=== PATIENT | male | born 1960 | race Caucasian/White ===

== ENCOUNTER 2017-07-15 15:41 | Inpatient (IN) | payer OTHER ==
[~2017-07-15] VITALS: Ht 157.5 cm; Wt 35.0 kg
[2017-07-15] VITALS (9 sets, daily range): BP systolic 106–124; BP diastolic 71–94; BMI 16.8
--- NOTE | ~2017-07-15 | PN ---
PATIENT:NAZIA LANIER MEDICAL RECORD: [id number] LOCATION:.[facility] D.231 ADMISSION DATE: 07/15/17 PROGRESS NOTE DATE OF SERVICE: 07/21/2017 PROGRESS NOTE ADDENDUM CHIEF COMPLAINT: None. The patient continues on BiPAP. There is some stool in the stoma bag. The abdomen is nontender. I think his ileus is slowly resolving. The patient is nonverbal and is unable to provide me with any aggravating or alleviating factors. He is unable to provide me with any review of systems. This is a progress note addendum. For the typed portion of the progress note, please see the chart. This would include past medical and surgical history, current medications, allergies, and social history as well as family history. PHYSICAL EXAMINATION: GENERAL: The patient appears acutely ill. Also appears chronically ill. VITAL SIGNS: Reviewed. EARS: External ears appear normal. EYES: Extraocular movements are intact. NECK: Trachea is midline. CHEST: Intercostal retractions are present. Moderately labored. ABDOMEN: Nontender. EXTREMITIES: Flexion extremity contractures. BACK: Thoracic kyphosis is noted. PSYCHIATRIC: Anxious affect. IMPRESSION: Slowly resolving ileus. PLAN: Continue current supportive care. TRANSINT:[id number] Voice Confirmation ID: [id number] DOCUMENT ID: [id number] ERAN GIBBS MD at 1327 CC: [id number] DICTATION DATE: 07/21/17 170 DIGITAL IMAGING SPECIALIST: 07/21/172 DIS IN 07/23/17 [place] [id number] [place] [id number]
--- NOTE | ~2017-07-15 | PN ---
PATIENT:NAZIA LANIER MEDICAL RECORD: [id number] LOCATION:[facility] ADMISSION DATE: 07/15/17 PROGRESS NOTE DATE OF SERVICE: 07/20/2017 ADDENDUM CHIEF COMPLAINT: None. The patient has a persistent ileus. His abdomen is nontender. He has not had a return of bowel function yet. Nothing aggravates. Nothing alleviates. The patient is unable to provide me with any review of systems. For the typed portion of the progress note, please see the chart. This would include current medications, past medical and surgical history, allergies, social history as well as family history. REVIEW OF SYSTEMS: As described above. The patient is unable to provide me with any review of systems due to his neurologic condition. He is currently on BiPAP. PHYSICAL EXAMINATION: GENERAL: The patient appears acutely ill. Also appears chronically ill. VITAL SIGNS: Reviewed. EARS: External ears appear normal. EYES: Extraocular movements are intact. NECK: Trachea is midline. CHEST: There are intercostal retractions. PULMONARY: Moderately labored. ABDOMEN: Nontender. EXTREMITIES: Contracted. There are flexion contractures. BACK: Thoracic kyphosis is present as well as scoliosis. INTEGUMENT: There is an intertriginous rash. LYMPHATIC: No lymphangitic streaking of the exposed extremities. IMPRESSION: Ileus, likely due to respiratory failure. PLAN: N.p.o. TRANSINT:[id number] Voice Confirmation ID: [id number] DOCUMENT ID: [id number] ERAN GIBBS MD at 1327 CC: [id number] DICTATION DATE: 07/20/172031 MACHINE MILKER: 07/21/17 0320 DIS IN 07/23/17 [place] [id number] [place] [id number]
[2017-07-15 16:45] LABS: BASOPHILS 0.1 % (0-2); EOSINOPHILS 0.7 % (0-7); HEMOGLOBIN 8.7 g/dL (13.5-17.5); IMMATURE GRANULOCYTES 0.3 % (0-5); LYMPHOCYTES 3.9 % (15-50); MCH 29.3 pg (26.0-34.0); MCHC 33.5 g/dL (31.0-37.0); MCV 87.5 fL (80.0-100.0); MEAN PLATELET VOLUME 9.7 fL (7.4-10.4); PLATELET COUNT 363 10x3/uL (130-400); RBC 2.97 10x6/uL (4.20-6.10); RDW 15.4 % (11.5-14.5); WBC 14.3 10x3/uL (4.8-10.8)
[2017-07-15 17:16] LABS: ALBUMIN 1.5 g/dL (3.4-5.0); ALKALINE PHOSPHATASE 112 U/L (46-116); ALT (SGPT) 57 U/L (10-68); BILIRUBIN - TOTAL 0.32 mg/dL (0.2-1.3); CALC OSMOLALITY 270 mosm/kg (275-300); CALCIUM 8.1 mg/dL (8.5-10.1); CARBON DIOXIDE 33.8 mmol/L (21.0-32.0); CHLORIDE - SERUM 97 mmol/L (98-107); CREATININE - SERUM 0.5 mg/dL (0.6-1.3); GLUCOSE 99 mg/dL (74-106); POTASSIUM - SERUM 4.3 mmol/L (3.5-5.1); PROTEIN - SERUM 5.5 g/dL (6.4-8.2); SODIUM 135 mmol/L (136-145); UREA NITROGEN 15 mg/dL (7-18); eGFR NON AFRICAN AMERICAN > 90 mL/min (90-120)
[2017-07-16] VITALS (24 sets, daily range): BP systolic 100–120; BP diastolic 67–580; BMI 16.6
[2017-07-16 03:48] LABS: BASOPHILS 0.1 % (0-2); EOSINOPHILS 1.2 % (0-7); HEMATOCRIT 26.3 % (42.0-54.0); HEMOGLOBIN 8.5 g/dL (13.5-17.5); IMMATURE GRANULOCYTES 0.2 % (0-5); LYMPHOCYTES 5.3 % (15-50); MCH 28.6 pg (26.0-34.0); MCHC 32.3 g/dL (31.0-37.0); MCV 88.6 fL (80.0-100.0); MEAN PLATELET VOLUME 9.7 fL (7.4-10.4); MONOCYTES 10.8 % (2-11); NEUTROPHILS 82.4 % (40-80); PLATELET COUNT 427 10x3/uL (130-400); RBC 2.97 10x6/uL (4.20-6.10); RDW 15.7 % (11.5-14.5)
[2017-07-16 04:07] LABS: WBC 10.7 10x3/uL (4.8-10.8)
[2017-07-16 04:19] LABS: ALBUMIN 1.4 g/dL (3.4-5.0); ALKALINE PHOSPHATASE 103 U/L (46-116); ALT (SGPT) 51 U/L (10-68); CALC OSMOLALITY 271 mosm/kg (275-300); CALCIUM 8.8 mg/dL (8.5-10.1); CARBON DIOXIDE 33.2 mmol/L (21.0-32.0); CHLORIDE - SERUM 97 mmol/L (98-107); CREATININE - SERUM 0.5 mg/dL (0.6-1.3); GLUCOSE 84 mg/dL (74-106); POTASSIUM - SERUM 3.9 mmol/L (3.5-5.1); PROTEIN - SERUM 6.4 g/dL (6.4-8.2); SODIUM 136 mmol/L (136-145); UREA NITROGEN 15 mg/dL (7-18); eGFR NON AFRICAN AMERICAN > 90 mL/min (90-120)
[2017-07-17] VITALS (24 sets, daily range): BP systolic 103–137; BP diastolic 66–96
[2017-07-17 04:14] LABS: BASOPHILS 0.1 % (0-2); EOSINOPHILS 1.7 % (0-7); HEMOGLOBIN 8.3 g/dL (13.5-17.5); IMMATURE GRANULOCYTES 0.3 % (0-5); LYMPHOCYTES 6.9 % (15-50); MCH 28.2 pg (26.0-34.0); MCHC 31.9 g/dL (31.0-37.0); MCV 88.4 fL (80.0-100.0); MEAN PLATELET VOLUME 9.5 fL (7.4-10.4); MONOCYTES 11.3 % (2-11); NEUTROPHILS 79.7 % (40-80); RBC 2.94 10x6/uL (4.20-6.10); RDW 15.7 % (11.5-14.5); WBC 9.6 10x3/uL (4.8-10.8)
[2017-07-17 04:21] LABS: PLATELET COUNT 572 10x3/uL (130-400)
[2017-07-17 04:38] LABS: % SATURATION 12 % (15-55); IRON 22 ug/dl (35-150); TOTAL IRON BIND CAPACITY 177 ug/dl (260-445); UNSAT IRON BIND CAPACITY 155 ug/dl (150-375)
[2017-07-17 04:43] LABS: ALBUMIN 1.4 g/dL (3.4-5.0); ALKALINE PHOSPHATASE 102 U/L (46-116); ALT (SGPT) 45 U/L (10-68); BILIRUBIN - TOTAL 0.26 mg/dL (0.2-1.3); CALC OSMOLALITY 275 mosm/kg (275-300); CALCIUM 8.9 mg/dL (8.5-10.1); CARBON DIOXIDE 35.5 mmol/L (21.0-32.0); CHLORIDE - SERUM 96 mmol/L (98-107); CREATININE - SERUM 0.6 mg/dL (0.6-1.3); FERRITIN 341 ng/mL (3-244); GLUCOSE 108 mg/dL (74-106); POTASSIUM - SERUM 3.9 mmol/L (3.5-5.1); PROTEIN - SERUM 6.3 g/dL (6.4-8.2); SODIUM 136 mmol/L (136-145); eGFR NON AFRICAN AMERICAN > 90 mL/min (90-120)
[2017-07-17 04:46] LABS: UREA NITROGEN 21 mg/dL (7-18)
[2017-07-18] VITALS (23 sets, daily range): BP systolic 113–161; BP diastolic 70–880; Ht 157.5 cm; Wt 35.0 kg
[2017-07-18 03:31] LABS: BASOPHILS 0.1 % (0-2); EOSINOPHILS 0.6 % (0-7); HEMATOCRIT 28.5 % (42.0-54.0); HEMOGLOBIN 9.3 g/dL (13.5-17.5); IMMATURE GRANULOCYTES 0.3 % (0-5); LYMPHOCYTES 3.9 % (15-50); MCH 28.9 pg (26.0-34.0); MCHC 32.6 g/dL (31.0-37.0); MCV 88.5 fL (80.0-100.0); MEAN PLATELET VOLUME 9.2 fL (7.4-10.4); MONOCYTES 6.1 % (2-11); PLATELET COUNT 674 10x3/uL (130-400); RBC 3.22 10x6/uL (4.20-6.10); RDW 15.2 % (11.5-14.5); WBC 11.3 10x3/uL (4.8-10.8)
[2017-07-18 03:58] LABS: ALBUMIN 1.6 g/dL (3.4-5.0); ALKALINE PHOSPHATASE 111 U/L (46-116); ALT (SGPT) 45 U/L (10-68); CALC OSMOLALITY 271 mosm/kg (275-300); CALCIUM 8.9 mg/dL (8.5-10.1); CARBON DIOXIDE 33.1 mmol/L (21.0-32.0); CHLORIDE - SERUM 95 mmol/L (98-107); CREATININE - SERUM 0.6 mg/dL (0.6-1.3); GLUCOSE 196 mg/dL (74-106); POTASSIUM - SERUM 3.7 mmol/L (3.5-5.1); SODIUM 132 mmol/L (136-145); THYROID STIMULATING HORMONE 2.94 uIU/mL (0.36-3.74); UREA NITROGEN 19 mg/dL (7-18); eGFR NON AFRICAN AMERICAN > 90 mL/min (90-120)
[2017-07-18 17:12] LABS: AFB SPECIMEN PROCESSING Concentration (())
[2017-07-19] VITALS (24 sets, daily range): BP systolic 101–129; BP diastolic 69–88
[2017-07-19 04:11] LABS: BASOPHILS 0.1 % (0-2); EOSINOPHILS 1.4 % (0-7); HEMATOCRIT 26.9 % (42.0-54.0); HEMOGLOBIN 8.5 g/dL (13.5-17.5); IMMATURE GRANULOCYTES 0.2 % (0-5); LYMPHOCYTES 8.8 % (15-50); MCH 28.1 pg (26.0-34.0); MCHC 31.6 g/dL (31.0-37.0); MCV 89.1 fL (80.0-100.0); MEAN PLATELET VOLUME 9.1 fL (7.4-10.4); MONOCYTES 9.2 % (2-11); NEUTROPHILS 80.3 % (40-80); PLATELET COUNT 710 10x3/uL (130-400); RBC 3.02 10x6/uL (4.20-6.10); RDW 15.6 % (11.5-14.5); WBC 8.3 10x3/uL (4.8-10.8)
[2017-07-19 04:17] LABS: ALBUMIN 1.5 g/dL (3.4-5.0); ALKALINE PHOSPHATASE 92 U/L (46-116); BILIRUBIN - TOTAL 0.28 mg/dL (0.2-1.3); CALCIUM 8.8 mg/dL (8.5-10.1); CARBON DIOXIDE 35.4 mmol/L (21.0-32.0); CHLORIDE - SERUM 98 mmol/L (98-107); CREATININE - SERUM 0.5 mg/dL (0.6-1.3); POTASSIUM - SERUM 4.1 mmol/L (3.5-5.1); PROTEIN - SERUM 6.4 g/dL (6.4-8.2); SODIUM 137 mmol/L (136-145); UREA NITROGEN 16 mg/dL (7-18); eGFR NON AFRICAN AMERICAN > 90 mL/min (90-120)
[2017-07-19 04:18] LABS: ALT (SGPT) 33 U/L (10-68); CALC OSMOLALITY 274 mosm/kg (275-300); GLUCOSE 90 mg/dL (74-106)
[2017-07-19 04:26] LABS: MAGNESIUM - SERUM 2.2 mg/dL (1.8-2.4); PRE-ALBUMIN 11.8 mg/dL (18.0-35.7)
[2017-07-19 13:14] LABS: FUNGUS STAIN Final report (())
[2017-07-19 15:11] LABS: CKMB 1.2 U/L (0.0-3.6); CREATINE KINASE 26 UL (21-232); TROPONIN-I < 0.017 ng/mL (0.000-0.060)
[2017-07-19] MEDS ORDERED: VALIUM10 MG PO (19:58)
[2017-07-19] MEDS ORDERED: PROSCAR5 MG PO (19:59)
[2017-07-19] MEDS ORDERED: OMEPRAZOLE40 MG PO (20:00)
[2017-07-19] MEDS ORDERED: CARAFATE1 G/10 ML PO (20:01)
[2017-07-19] MEDS ORDERED: SINGULAIR10 MG PO (20:02)
[2017-07-19] MEDS ORDERED: GLYCOLAX527 GM PO (20:03)
[2017-07-19] MEDS ORDERED: REMERON15 MG PO (20:04)
[2017-07-19] MEDS ORDERED: VESICARE10 MG PO (20:05)
[2017-07-19] MEDS ORDERED: ULTRAM50 MG PO (20:06)
[2017-07-20] VITALS (24 sets, daily range): BP systolic 93–149; BP diastolic 60–101
[2017-07-20 05:04] LABS: BASOPHILS 0.2 % (0-2); EOSINOPHILS 1.7 % (0-7); HEMATOCRIT 26.7 % (42.0-54.0); HEMOGLOBIN 8.4 g/dL (13.5-17.5); IMMATURE GRANULOCYTES 0.5 % (0-5); LYMPHOCYTES 10.2 % (15-50); MCH 28.4 pg (26.0-34.0); MCHC 31.5 g/dL (31.0-37.0); MCV 90.2 fL (80.0-100.0); MONOCYTES 9.6 % (2-11); NEUTROPHILS 77.8 % (40-80); PLATELET COUNT 697 10x3/uL (130-400); RBC 2.96 10x6/uL (4.20-6.10); RDW 15.5 % (11.5-14.5); WBC 6.6 10x3/uL (4.8-10.8)
[2017-07-20 05:28] LABS: ALBUMIN 1.5 g/dL (3.4-5.0); ALKALINE PHOSPHATASE 82 U/L (46-116); ALT (SGPT) 29 U/L (10-68); BILIRUBIN - TOTAL 0.15 mg/dL (0.2-1.3); CALC OSMOLALITY 270 mosm/kg (275-300); CALCIUM 8.3 mg/dL (8.5-10.1); CARBON DIOXIDE 30.2 mmol/L (21.0-32.0); CHLORIDE - SERUM 99 mmol/L (98-107); CREATININE - SERUM 0.4 mg/dL (0.6-1.3); GLUCOSE 113 mg/dL (74-106); POTASSIUM - SERUM 3.9 mmol/L (3.5-5.1); PROTEIN - SERUM 5.3 g/dL (6.4-8.2); SODIUM 135 mmol/L (136-145); UREA NITROGEN 13 mg/dL (7-18); eGFR NON AFRICAN AMERICAN > 90 mL/min (90-120)
[2017-07-21] VITALS (22 sets, daily range): BP systolic 120–168; BP diastolic 76–107
[2017-07-21 05:01] LABS: BASOPHILS 0.1 % (0-2); EOSINOPHILS 1.2 % (0-7); HEMOGLOBIN 9.1 g/dL (13.5-17.5); IMMATURE GRANULOCYTES 0.2 % (0-5); LYMPHOCYTES 8.6 % (15-50); MCH 28.7 pg (26.0-34.0); MCHC 31.4 g/dL (31.0-37.0); MCV 91.5 fL (80.0-100.0); MEAN PLATELET VOLUME 9.1 fL (7.4-10.4); MONOCYTES 10.3 % (2-11); NEUTROPHILS 79.6 % (40-80); RBC 3.17 10x6/uL (4.20-6.10); RDW 15.7 % (11.5-14.5)
[2017-07-21 05:09] LABS: PLATELET COUNT 911 10x3/uL (130-400); WBC 8.6 10x3/uL (4.8-10.8)
[2017-07-21 05:13] LABS: CALC OSMOLALITY 272 mosm/kg (275-300); CHLORIDE - SERUM 99 mmol/L (98-107); CREATININE - SERUM 0.4 mg/dL (0.6-1.3); GLUCOSE 104 mg/dL (74-106); POTASSIUM - SERUM 3.7 mmol/L (3.5-5.1); SODIUM 137 mmol/L (136-145); UREA NITROGEN 10 mg/dL (7-18); eGFR NON AFRICAN AMERICAN > 90 mL/min (90-120)
[2017-07-22] VITALS (24 sets, daily range): BP systolic 99–154; BP diastolic 56–101
[2017-07-22 05:14] LABS: BASOPHILS 0.1 % (0-2); EOSINOPHILS 0.3 % (0-7); HEMATOCRIT 30.7 % (42.0-54.0); HEMOGLOBIN 9.5 g/dL (13.5-17.5); IMMATURE GRANULOCYTES 0.2 % (0-5); LYMPHOCYTES 3.6 % (15-50); MCH 28.5 pg (26.0-34.0); MCHC 30.9 g/dL (31.0-37.0); MCV 92.2 fL (80.0-100.0); MEAN PLATELET VOLUME 8.8 fL (7.4-10.4); NEUTROPHILS 90.8 % (40-80); PLATELET COUNT 890 10x3/uL (130-400); RBC 3.33 10x6/uL (4.20-6.10); RDW 15.8 % (11.5-14.5)
[2017-07-22 05:23] LABS: WBC 13.8 10x3/uL (4.8-10.8)
[2017-07-22 05:38] LABS: CALC OSMOLALITY 271 mosm/kg (275-300); CALCIUM 9.2 mg/dL (8.5-10.1); CARBON DIOXIDE 35.6 mmol/L (21.0-32.0); CHLORIDE - SERUM 97 mmol/L (98-107); CREATININE - SERUM 0.4 mg/dL (0.6-1.3); GLUCOSE 130 mg/dL (74-106); POTASSIUM - SERUM 4.2 mmol/L (3.5-5.1); SODIUM 135 mmol/L (136-145); UREA NITROGEN 12 mg/dL (7-18); eGFR NON AFRICAN AMERICAN > 90 mL/min (90-120)
[2017-07-23] VITALS (15 sets, daily range): BP systolic 83–141; BP diastolic 52–96
[2017-07-23 03:35] LABS: BASOPHILS 0.1 % (0-2); EOSINOPHILS 0.1 % (0-7); HEMATOCRIT 30.9 % (42.0-54.0); HEMOGLOBIN 9.6 g/dL (13.5-17.5); IMMATURE GRANULOCYTES 0.1 % (0-5); LYMPHOCYTES 3.2 % (15-50); MCH 28.4 pg (26.0-34.0); MCHC 31.1 g/dL (31.0-37.0); MCV 91.4 fL (80.0-100.0); MEAN PLATELET VOLUME 8.8 fL (7.4-10.4); MONOCYTES 4.3 % (2-11); NEUTROPHILS 92.2 % (40-80); PLATELET COUNT 817 10x3/uL (130-400); RBC 3.38 10x6/uL (4.20-6.10); WBC 13.4 10x3/uL (4.8-10.8)
[2017-07-23 03:47] LABS: CALCIUM 9.2 mg/dL (8.5-10.1); CARBON DIOXIDE 36.6 mmol/L (21.0-32.0); CHLORIDE - SERUM 96 mmol/L (98-107); CREATININE - SERUM 0.4 mg/dL (0.6-1.3); GLUCOSE 129 mg/dL (74-106); POTASSIUM - SERUM 4.4 mmol/L (3.5-5.1); SODIUM 133 mmol/L (136-145); eGFR NON AFRICAN AMERICAN > 90 mL/min (90-120)
[2017-07-23 04:04] LABS: CALC OSMOLALITY 268 mosm/kg (275-300); UREA NITROGEN 16 mg/dL (7-18)
[2017-07-24 09:11] LABS: FUNGUS CULTURE RESULT 1 Candida albicans (())
[2017-08-15 09:14] LABS: FUNGUS MYCOLOGY CULTURE Final report (())
[2017-09-06 11:20] LABS: ACID FAST CULTURE Negative (()); ACID FAST SMEAR Negative (())
== END 2017-07-23 18:59 | disposition hospice, inpatient (51) | DRG 207 ==
LOC: D.ICU 15:41
PROVIDERS: Emergency Medicine; Internal Medicine Pulmonary Disease
PROC: 5A1955Z Respiratory Ventilation, Greater than 96 Consecutive Hours (ICD-10-PCS; principal; 2017-07-15)
PROC: 0BC68ZZ Extirpation of Matter from Right Lower Lobe Bronchus, Via Natural or Artificial Opening Endoscopic (ICD-10-PCS; 2017-07-16)
PROC: 5A09457 Assistance with Respiratory Ventilation, 24-96 Consecutive Hours, Continuous Positive Airway Pressure (ICD-10-PCS; 2017-07-20)
DX: J96.02 Acute respiratory failure with hypercapnia (principal); G80.0 Spastic quadriplegic cerebral palsy; J69.0 Pneumonitis due to inhalation of food and vomit; T17.590A Other foreign object in bronchus causing asphyxiation, initial encounter; K56.7 Ileus, unspecified; J98.11 Atelectasis; Z68.1 Body mass index [BMI] 19.9 or less, adult; J96.01 Acute respiratory failure with hypoxia; M41.9 Scoliosis, unspecified; Z78.1 Physical restraint status; K21.9 Gastro-esophageal reflux disease without esophagitis; Q66.89 Other specified congenital deformities of feet; R63.6 Underweight; Z93.3 Colostomy status; D50.9 Iron deficiency anemia, unspecified

== ENCOUNTER 2017-07-23 18:57 | Inpatient (IN) | payer OTHER ==
[~2017-07-23] VITALS: Ht 157.5 cm; Wt 37.9 kg
[~2017-07-23 18:57] MED LIST: CARAFATE1 G/10 ML PO; GLYCOLAX527 GM PO; OMEPRAZOLE40 MG PO; PROSCAR5 MG PO; REMERON15 MG PO; SINGULAIR10 MG PO; ULTRAM50 MG PO; VALIUM10 MG PO; VESICARE10 MG PO
[2017-07-23 19:30] VITALS: BP 87/57
[2017-07-23 19:42] VITALS: BP 87/57; Ht 157.5 cm; Wt 37.9 kg
[2017-07-23 19:59] VITALS: BP 87/57
== END 2017-07-23 20:58 | DRG 951 ==
LOC: D.ICU 18:57
DX: Z51.5 Encounter for palliative care (principal)